=== PATIENT | male | born 1970 | race African-American/Black ===

== ENCOUNTER 2017-10-18 10:27 | Outpatient (CLI) | payer OTHER ==
--- NOTE | 2017-10-18 12:33 | RAD ---
CHEST TWO VIEWS: History: Dyspnea. FINDINGS: Cardiac silhouette and pulmonary vasculature are unremarkable. Mediastinum is midline. There is no co nfluent airspace consolidation, pneumothorax, or pleural fluid evident. IMPRESSION: No active cardiopulmonary abnormalities are demonstrated. POS: [facility]
== END 2017-10-18 10:28 | disposition home or self-care (01) ==
LOC: RAD 10:27
PROVIDERS: ATTEND Internal Medicine
DX: R06.00 Dyspnea, unspecified (principal)
CPT/HCPCS: 71020

== ENCOUNTER 2017-11-02 08:51 | Outpatient (CLI) | payer OTHER ==
--- NOTE | 2017-11-09 15:14 | PFT ---
PATIENT HISTORY: HEIGHT: 70 IN WEIGHT:233 SMOKER: NEVER HOW LONG: PACKS PER DAY PRODUCTIVE COUGH: LUNG DISEASE: PHYSICIAN INTERPRETATION FINAL REPORT: VITAL CAPACITY AND FLOWS ARE NORMAL. TOTAL CAPACITY RV NORMAL GAS DIFFUSION NORMAL IMPRESSION: NORMAL STUDY [employer] Supervisor: BETTYE Software Development Manager: BETTYE CHARLES
== END 2017-11-02 08:52 | disposition home or self-care (01) ==
LOC: CP 08:51
PROVIDERS: ATTEND Internal Medicine
DX: R05 Cough (principal)
CPT/HCPCS: 94010; 94727; 94729

== ENCOUNTER 2017-12-09 20:30 | Outpatient (CLI) | payer OTHER | END 2017-12-09 20:31 | disposition home or self-care (01) | LOC: SLEEPLAB 20:30 | PROVIDERS: ATTEND Internal Medicine | DX: G47.33 Obstructive sleep apnea (adult) (pediatric) (principal); R53.83 Other fatigue; K21.9 Gastro-esophageal reflux disease without esophagitis; I10 Essential (primary) hypertension; E11.9 Type 2 diabetes mellitus without complications | CPT/HCPCS: 95811 ==

== ENCOUNTER 2019-01-11 12:07 | Outpatient (CLI) | payer OTHER ==
--- NOTE | 2019-01-11 14:47 | ULT ---
LIMITED SOFT TISSUE ULTRASOUND: 01/11/2019 PROVIDED CLINICAL HISTORY: Left shoulder mass. FINDINGS: Limited sonographic interrogation was performed of the posterior left shoulder and region of palpable concern. There is a circumscribed, hypoechoic, oval mass, measuring about 2.5 x 1.1 x 2.3 cm. IMPRESSION: A 2.5 cm hypoechoic mass is present in the region of palpable concern, the sonographic appearance of which is not specific. Correlation with MRI with and without intravenous contrast is recommended for further characterization. POS: OFF
== END 2019-01-11 12:08 | disposition home or self-care (01) ==
LOC: BICULT 12:07
PROVIDERS: ATTEND Student in an Organized Health Care Education/Training Program
DX: M25.512 Pain in left shoulder (principal); M25.812 Other specified joint disorders, left shoulder
CPT/HCPCS: 76999

== ENCOUNTER 2019-08-28 12:57 | Emergency (ER) | payer OTHER | END 2019-08-28 14:20 | disposition home or self-care (01) | LOC: ERS 12:57 | DX: K05.10 Chronic gingivitis, plaque induced (principal); K02.9 Dental caries, unspecified; E11.9 Type 2 diabetes mellitus without complications; E78.5 Hyperlipidemia, unspecified; I10 Essential (primary) hypertension; Z79.899 Other long term (current) drug therapy; Z79.891 Long term (current) use of opiate analgesic; Z79.4 Long term (current) use of insulin | CPT/HCPCS: 99283 ==

== ENCOUNTER 2019-09-26 21:35 | Emergency (ER) | payer OTHER ==
--- NOTE | 2019-09-26 22:34 | RAD ---
XR Chest Pa Lat STANDARD HISTORY: Cough COMPARISON: 07/10/2003 FINDINGS: The heart size is normal. The lungs are well expanded without focal areas of consolidation, pneumothorax or pleural effusions. IMPRESSION: No radiographic evidence of acute cardiopulmonary process.
== END 2019-09-26 22:44 | disposition home or self-care (01) ==
LOC: ERS 21:35
DX: J06.9 Acute upper respiratory infection, unspecified (principal); I10 Essential (primary) hypertension; E11.9 Type 2 diabetes mellitus without complications
CPT/HCPCS: 71046

== ENCOUNTER 2019-09-27 22:34 | Emergency (ER) | payer OTHER ==
[2019-09-27] MEDS ORDERED: Ketorolac Tromethamine 60 MG/2 ML VIAL ONE (23:24)
== END 2019-09-28 00:02 | disposition home or self-care (01) ==
LOC: ERS 22:34
DX: S16.1XXA Strain of muscle, fascia and tendon at neck level, initial encounter (principal); J06.9 Acute upper respiratory infection, unspecified; E78.5 Hyperlipidemia, unspecified; I10 Essential (primary) hypertension; E11.9 Type 2 diabetes mellitus without complications; F41.9 Anxiety disorder, unspecified; Z79.891 Long term (current) use of opiate analgesic; Z79.4 Long term (current) use of insulin; Z79.899 Other long term (current) drug therapy; X58.XXXA Exposure to other specified factors, initial encounter
CPT/HCPCS: 96372; 99283; J1885

== ENCOUNTER 2020-08-14 08:06 | Outpatient (CLI) | payer OTHER ==
[2020-08-14 16:29] LABS: #Eosinphils 0.1 thou/uL (0.0-0.7); #Monocytes 0.7 thou/uL (0.11-0.59); #Neutrophils 5.2 thou/uL (1.40-6.50); %Basophils 0.2 % (0.0-1.0); %Eosinophils 1.3 % (0.0-10.0); %Lymphocytes 24.8 % (21.0-51.0); %Monocytes 8.9 % (0.0-10.0); %Neutrophils 64.8 % (42.0-75.0); Mean Corpuscular HGB CONC 34.6 g/dL (32.0-36.0); Mean Corpuscular Hemoglobin 31.6 pg (27.0-31.0); Mean Corpuscular Volume 91.3 fL (78.0-98.0); Mean Platelet Volume 8.4 fL (7.4-10.4); Platelet Count 264 thou/uL (130-400); RBC Distribution Width 12.7 % (11.5-14.5); Red Blood Cell (RBC) Count 4.75 mill/uL (4.70-6.10)
[2020-08-14 17:50] LABS: ALT (SGPT) 26 U/L (8-55); AST (SGOT) 18 U/L (5-34); Alkaline Phosphatase 73 U/L (40-110); Anion Gap 16 mmol/L (10-20); BUN (Urea Nitrogen) 21 mg/dL (8.9-20.6); Bilirubin, Total 0.6 mg/dL (0.2-1.2); Calc. Creatinine Clearance 0 mL/min (70-130); Calcium 9.5 mg/dL (7.8-10.44); Carbon Dioxide 26 mmol/L (22-29); Chloride 96 mmol/L (98-107); Estimated GFR-MDRD 56; Globulin 3.3 g/dL (2.4-3.5); Glucose 382 mg/dL (70-105); Protein, Total 7.3 g/dL (6.0-8.3); Sodium 134 mmol/L (136-145)
[2020-08-15 12:32] LABS: SARS-CoV-2 MS2 Positive; SARS-CoV-2 N Gene Negative; SARS-CoV-2 S Gene Negative; SARS-CoV-2 by NAA Not Detected (NotDetected); SARS-CoV-2 orf1ab Negative
--- NOTE | 2020-08-16 16:53 | EKG ---
Test Reason : Blood Pressure : / mmHG Vent. Rate : 078 BPM Atrial Rate : 078 BPM P-R Int : 162 ms QRS Dur : 084 ms QT Int : 382 ms P-R-T Axes : 047 -08 068 degrees QTc Int : 435 ms Normal sinus rhythm Possible Left atrial enlargement Nonspecific T wave abnormality Abnormal ECG No previous ECGs available Confirmed by DR. Mike KIRKPATRICK ([id number]) on 08/16/2020 4:52:27 PM Referred By: JAYSON Confirmed By:DR. Mike KIRKPATRICK
== END 2020-08-14 08:07 | disposition home or self-care (01) ==
LOC: LABBT 08:06
PROVIDERS: ATTEND Specialist
DX: Z01.818 Encounter for other preprocedural examination (principal); K80.20 Calculus of gallbladder without cholecystitis without obstruction; Z20.828 Contact with and (suspected) exposure to other viral communicable diseases
CPT/HCPCS: 80053; 85025; 87635; 93005; 93010; U0003

== ENCOUNTER 2020-08-19 06:04 | Day surgery (SDC) | payer OTHER ==
[2020-08-18 12:25] VITALS: BMI 32.8
[2020-08-19] MEDS ORDERED: Ketorolac Tromethamine 30 MG/ML VIAL ONE (06:22)
[2020-08-19] MEDS ORDERED: Acetaminophen 500 MG TAB ONE (06:22)
[2020-08-19] MEDS ORDERED: Famotidine/PF 20 mg/2ml Vial ONE (06:35)
[2020-08-19] MEDS ORDERED: Fentanyl 100 MCG/2 ML VIAL ONE (06:35)
[2020-08-19] MEDS ORDERED: Bupivacaine/Epinephrine 0.25% 30 ML VIAL ONE (06:41)
[2020-08-19] MEDS ORDERED: Midazolam HCl 2 mg/2 ml Vial ONE (07:21)
[2020-08-19] MEDS ORDERED: SUGAMMADEX SODIUM 200 MG/2 ML VIAL ONE (07:28)
[2020-08-19] MEDS ORDERED: PROPOFOL 200 MG/20 ML VIAL ONE (09:41)
[2020-08-19] MEDS ORDERED: Ondansetron PF 4 MG/2 ML Vial ONE (09:41)
[2020-08-19] MEDS ORDERED: Rocuronium Bromide 10 MG/ML (10ML VIAL) ONE (09:41)
[2020-08-19] MEDS ORDERED: Lidocaine 1% PF 5 ML VIAL ONE (09:41)
[2020-08-19] MEDS ORDERED: Metoclopramide HCl 10 MG/2 ML VIAL ONE (09:41)
[2020-08-19] MEDS ORDERED: PHENYLEPHRINE-NS 100 MCG/ML 10 ML SYRINGE ONE (09:41)
--- NOTE | 2020-08-19 10:40 | OP ---
DATE OF PROCEDURE: 08/19/2020 PREOPERATIVE DIAGNOSIS: Symptomatic cholelithiasis. POSTOPERATIVE DIAGNOSIS: Symptomatic cholelithiasis. PROCEDURE PERFORMED: Laparoscopic cholecystectomy. ANESTHESIA: General endotracheal. INDICATIONS: The patient is a 49-year-old black male. He presented recently with colicky right upper quadrant abdominal pain. CT scan demonstrated cholelithiasis. He was taken to the operating room at this time for surgical treatment of symptomatic cholelithiasis. DESCRIPTION OF OPERATION: Informed consent was obtained. The patient was taken to the operating room where general endotracheal anesthesia was obtained with the patient in the supine position. The abdomen was prepped with Betadine and draped in the usual sterile fashion. 0.25% Marcaine with epinephrine was infiltrated below the umbilicus and a 10 mm infraumbilical incision was created. A Veress needle was passed through this incision into the peritoneal cavity. A pneumoperitoneum was established using carbon dioxide up to a pressure of 15 mmHg. Local anesthetic was infiltrated and 3 additional 5 mm right upper quadrant incisions were created. Through the mid incision, a 5 mm port was passed into the peritoneal cavity. The camera was passed through this port and under direct vision, an 11 port was passed through the infraumbilical incision. The camera was replaced through this port, and under direct vision, 2 additional 5 mm ports were passed through the incisions already created. The gallbladder was grasped and retracted in a cephalad direction. Minimal adhesions were bluntly stripped away from the apex of the gallbladder, and the apex was retracted laterally and inferiorly. Careful dissection was carried out to the apex of the gallbladder to identify the cystic duct and cystic artery. These were each carefully dissected circumferentially. The duct was of normal caliber. Both the duct and the artery were divided between clips, leaving 2 on the side to remain within the abdomen. The gallbladder was then dissected out of the gallbladder fossa using electrocautery and removed through the infraumbilical port site. The fascia was closed with 0 Vicryl suture and a GraNee needle. The right upper quadrant was inspected and irrigated. All irrigant was aspirated. All ports and instruments were removed under direct vision. Pneumoperitoneum was carefully evacuated. Additional local anesthetic was infiltrated into each port site. The skin edges were approximated with 4-0 Monocryl subcuticular sutures, and Dermabond was placed externally. There were no complications. The patient tolerated the procedure well and was taken to the recovery room in stable condition. FINDINGS: The patient's gallbladder was without any acute inflammatory changes. Duct was small and noninflamed. Operation was performed without blood loss or injury. The patient tolerated the procedure well and was taken to recovery in stable condition. Job ID: [id number]
== END 2020-08-19 10:20 | disposition home or self-care (01) ==
LOC: SDC 06:04
PROVIDERS: ATTEND Specialist
PROC: 0FT44ZZ Resection of Gallbladder, Percutaneous Endoscopic Approach (ICD-10-PCS; principal; 2020-08-19)
DX: K80.10 Calculus of gallbladder with chronic cholecystitis without obstruction (principal); E11.9 Type 2 diabetes mellitus without complications; I10 Essential (primary) hypertension; Z79.4 Long term (current) use of insulin; Z79.82 Long term (current) use of aspirin; Z79.899 Other long term (current) drug therapy
CPT/HCPCS: 36416; 88304; J0690; J1885; J2250; J2405; J2704; J2765; J3010; S0028

== ENCOUNTER 2022-05-16 21:56 | Emergency (ER) | payer OTHER ==
[2022-05-16 23:08] LABS: #Eosinphils 0.1 thou/uL (0.0-0.7); #Lymphocytes 2.3 thou/uL (1.20-3.40); #Monocytes 1.1 thou/uL (0.11-0.59); #Neutrophils 9.7 thou/uL (1.40-6.50); %Basophils 0.2 % (0.0-1.0); %Eosinophils 0.6 % (0.0-10.0); %Lymphocytes 17.4 % (21.0-51.0); %Neutrophils 73.8 % (42.0-75.0); Mean Corpuscular HGB CONC 34.9 g/dL (32.0-36.0); Mean Corpuscular Volume 94.5 fL (78.0-98.0); Mean Platelet Volume 8.6 fL (7.4-10.4); Platelet Count 208 thou/uL (130-400); RBC Distribution Width 13.5 % (11.5-14.5); Red Blood Cell (RBC) Count 3.94 mill/uL (4.70-6.10); White Blood Cell (WBC) Count 13.1 thou/uL (4.8-10.8)
[2022-05-16 23:32] LABS: ALT (SGPT) 52 U/L (8-55); AST (SGOT) 40 U/L (5-34); Albumin 4.6 g/dL (3.5-5.0); Alkaline Phosphatase 82 U/L (40-110); Anion Gap 17 mmol/L (10-20); BUN (Urea Nitrogen) 19 mg/dL (8.4-25.7); Bilirubin, Total 1.4 mg/dL (0.2-1.2); Calc. Creatinine Clearance 0 mL/min (70-130); Calcium 9.7 mg/dL (7.8-10.44); Carbon Dioxide 24 mmol/L (22-29); Chloride 104 mmol/L (98-107); Estimated GFR 55; Globulin 3.2 g/dL (2.4-3.5); Glucose 141 mg/dL (70-105); Lipase 9 U/L (8-78); Potassium 3.7 mmol/L (3.5-5.1); Protein, Total 7.8 g/dL (6.0-8.3); Sodium 141 mmol/L (136-145)
[2022-05-16 23:56] LABS: CKMB 15.8 ng/mL (0-6.6)
== END 2022-05-17 04:14 | disposition home or self-care (01) ==
LOC: ERS 21:56
DX: R07.89 Other chest pain (principal); R06.02 Shortness of breath; E11.9 Type 2 diabetes mellitus without complications; I10 Essential (primary) hypertension; Z79.899 Other long term (current) drug therapy; Z79.82 Long term (current) use of aspirin
CPT/HCPCS: 36415; 71045; 80053; 82553; 83690; 84484; 85025; 93005

== ENCOUNTER 2022-07-27 10:42 | Emergency (ER) | payer OTHER ==
[2022-07-27 11:46] LABS: #Eosinphils 0.1 thou/uL (0.0-0.7); #Lymphocytes 1.6 thou/uL (1.20-3.40); %Basophils 0.1 % (0.0-1.0); %Eosinophils 0.7 % (0.0-10.0); %Lymphocytes 14.7 % (21.0-51.0); %Monocytes 9.2 % (0.0-10.0); %Neutrophils 75.3 % (42.0-75.0); Hemoglobin 12.4 g/dL (14.0-18.0); Mean Corpuscular HGB CONC 32.9 g/dL (32.0-36.0); Mean Corpuscular Volume 94.1 fL (78.0-98.0); Mean Platelet Volume 8.4 fL (7.4-10.4); Platelet Count 222 thou/uL (130-400); RBC Distribution Width 13.6 % (11.5-14.5); Red Blood Cell (RBC) Count 3.99 mill/uL (4.70-6.10); White Blood Cell (WBC) Count 10.6 thou/uL (4.8-10.8)
[2022-07-27 12:07] LABS: ALT (SGPT) 69 U/L (8-55); AST (SGOT) 29 U/L (5-34); Alkaline Phosphatase 91 U/L (40-110); Anion Gap 13 mmol/L (10-20); BUN (Urea Nitrogen) 13 mg/dL (8.4-25.7); Bilirubin, Total 1.4 mg/dL (0.2-1.2); Calc. Creatinine Clearance 0 mL/min (70-130); Calcium 9.3 mg/dL (7.8-10.44); Carbon Dioxide 26 mmol/L (22-29); Chloride 103 mmol/L (98-107); Estimated GFR 63; Globulin 3.1 g/dL (2.4-3.5); Glucose 206 mg/dL (70-105); Potassium 3.7 mmol/L (3.5-5.1); Protein, Total 7.1 g/dL (6.0-8.3); Sodium 138 mmol/L (136-145)
== END 2022-07-27 14:40 | disposition home or self-care (01) ==
LOC: ERS 10:42
DX: R07.9 Chest pain, unspecified (principal); I10 Essential (primary) hypertension; E11.9 Type 2 diabetes mellitus without complications; E78.5 Hyperlipidemia, unspecified; Z79.899 Other long term (current) drug therapy
CPT/HCPCS: 36415; 71045; 80053; 83880; 84484; 85025; 93005; 94760

== ENCOUNTER 2022-10-01 09:36 | Outpatient (CLI) | payer OTHER | END 2022-10-01 09:37 | disposition home or self-care (01) | LOC: ULT 09:36 | PROVIDERS: ATTEND Family Medicine | DX: M79.671 Pain in right foot (principal) ==

== ENCOUNTER 2022-12-30 08:57 | Outpatient (CLI) | payer OTHER | END 2022-12-30 08:58 | disposition home or self-care (01) | LOC: BICULT 08:57 | PROVIDERS: ATTEND Internal Medicine Nephrology | DX: I10 Essential (primary) hypertension (principal) | CPT/HCPCS: 76770; 93975 ==

== ENCOUNTER 2022-12-30 09:34 | Outpatient (CLI) | payer OTHER | END 2022-12-30 09:35 | disposition home or self-care (01) | LOC: RAD 09:34 | PROVIDERS: ATTEND Student in an Organized Health Care Education/Training Program | DX: M79.671 Pain in right foot (principal); M77.31 Calcaneal spur, right foot | CPT/HCPCS: 76770; 93975 ==

== ENCOUNTER 2023-08-29 12:28 | Outpatient (CLI) | payer OTHER | END 2023-08-29 12:29 | disposition home or self-care (01) | LOC: BICRAD 12:28 | PROVIDERS: ATTEND Student in an Organized Health Care Education/Training Program | DX: M25.562 Pain in left knee (principal) ==

== ENCOUNTER 2023-09-28 09:49 | Outpatient (CLI) | payer OTHER | END 2023-09-28 09:50 | disposition home or self-care (01) | LOC: ULT 09:49 | PROVIDERS: ATTEND Student in an Organized Health Care Education/Training Program | DX: D17.1 Benign lipomatous neoplasm of skin and subcutaneous tissue of trunk (principal); D17.22 Benign lipomatous neoplasm of skin and subcutaneous tissue of left arm | CPT/HCPCS: 76999 ==

== ENCOUNTER 2023-11-28 08:53 | Outpatient (CLI) | payer OTHER | END 2023-11-28 08:54 | disposition home or self-care (01) | LOC: ULT 08:53 | PROVIDERS: ATTEND Student in an Organized Health Care Education/Training Program | DX: I10 Essential (primary) hypertension (principal) | CPT/HCPCS: 76770; 93975 ==

== ENCOUNTER 2024-06-29 07:52 | Outpatient (CLI) | payer OTHER ==
[2024-06-29] MEDS ORDERED: Iopamidol 370 76% 100 ML VIAL ONE (13:53)
== END 2024-06-29 07:53 | disposition home or self-care (01) ==
LOC: BICCT 07:52
PROVIDERS: ATTEND Student in an Organized Health Care Education/Training Program
DX: I11.0 Hypertensive heart disease with heart failure (principal); I50.30 Unspecified diastolic (congestive) heart failure; E27.9 Disorder of adrenal gland, unspecified
CPT/HCPCS: 74170; 82565; Q9967